=== PATIENT | male | born 1970 | race African-American/Black ===

== ENCOUNTER 2022-02-07 22:04 | Inpatient (IN) | payer MEDICARE, OTHER ==
[2022-02-07 23:13] LABS: Bacteria/HPF 2+ HPF (None Seen); Bilirubin Negative (Negative); Blood, Urine 3+ (Negative); Clarity Turbid (Clear); Glucose, Urine (Dipstick) Normal (Negative); Ketone, Urine Negative (Negative); Leukocyte 500 Leu/uL (Negative); Nitrite Negative (Negative); Protein, Urine (Dipstick) 30 mg/dL (Neg-Trace); RBC/HPF 21-50 HPF (0-3); Specific Gravity, Urine 1.007 (1.002-1.036); Squamous Epithelial 0-3 HPF (0-3); Urobilinogen Normal mg/dL (Less than 2); WBC/HPF Greater than 50 HPF (0-3)
[2022-02-07] MEDS ORDERED: Fentanyl 100 MCG/2 ML VIAL ONE (23:30)
[2022-02-07] MEDS ORDERED: Cefepime 2 GM VIAL ONE (23:30)
[2022-02-07 23:51] LABS: #Eosinphils 0.2 thou/uL (0.0-0.7); #Lymphocytes 1.3 thou/uL (1.20-3.40); #Neutrophils 6.2 thou/uL (1.40-6.50); %Basophils 0.5 % (0.0-1.0); %Eosinophils 2.6 % (0.0-10.0); %Lymphocytes 14.7 % (21.0-51.0); %Monocytes 11.8 % (0.0-10.0); %Neutrophils 70.4 % (42.0-75.0); Hemoglobin 9.4 g/dL (14.0-18.0); Mean Corpuscular HGB CONC 32.1 g/dL (32.0-36.0); Mean Corpuscular Hemoglobin 30.2 pg (27.0-31.0); Mean Platelet Volume 7.4 fL (7.4-10.4); Platelet Count 288 thou/uL (130-400); RBC Distribution Width 15.8 % (11.5-14.5); Red Blood Cell (RBC) Count 3.11 mill/uL (4.70-6.10); White Blood Cell (WBC) Count 8.7 thou/uL (4.8-10.8)
[2022-02-08 00:08] LABS: ALT (SGPT) 39 U/L (8-55); AST (SGOT) 48 U/L (5-34); Albumin 3.1 g/dL (3.5-5.0); Alkaline Phosphatase 110 U/L (40-110); Anion Gap 14 mmol/L (10-20); BUN (Urea Nitrogen) 20 mg/dL (8.4-25.7); Bilirubin, Total 1.2 mg/dL (0.2-1.2); Calc. Creatinine Clearance 0 mL/min (70-130); Calcium 9.3 mg/dL (7.8-10.44); Carbon Dioxide 32 mmol/L (22-29); Chloride 95 mmol/L (98-107); Estimated GFR 29; Globulin 5.1 g/dL (2.4-3.5); Glucose 103 mg/dL (70-105); Potassium 3.8 mmol/L (3.5-5.1); Protein, Total 8.2 g/dL (6.0-8.3); Sodium 137 mmol/L (136-145)
[2022-02-08 01:06] LABS: SARS-CoV-2 NAA Rapid Test Not Detected (NotDetected)
[2022-02-08] MEDS ORDERED: VANCOMYCIN 2 GRAM/500 ML BAG 2 GM in Premix Bag 1 BAG IVPB SCH (01:45)
[2022-02-08] MEDS ORDERED: Fentanyl 100 MCG/2 ML VIAL SLOW IVP PRN (04:17)
[2022-02-08 04:50] VITALS: BMI 41.2
[2022-02-08] MEDS: Acetaminophen 500 MG TAB PO SCH ×3 (05:28→21:53)
[2022-02-08] MEDS ORDERED: Cefepime 1 GM in Sodium Chloride 0.9% 100 ML IVPB SCH (12:00)
[2022-02-08] MEDS ORDERED: Meropenem 1 GM in Sodium Chloride 0.9% 100 ML IVPB SCH ×2 (14:00→22:00)
[2022-02-08] MEDS ORDERED: fentaNYL 50 mcg/hour Patch TD SCH (16:00)
[2022-02-08] MEDS ORDERED: Polyethylene Glycol 3350 17 GM Packet PO SCH (21:00)
[2022-02-08 21:06] VITALS: BP 189/95; TEMP 98.1
[2022-02-09] MEDS ORDERED: Vancomycin 1.5 GRAM/300 ML BAG 1.5 GM in Premix Bag 1 BAG IVPB SCH (02:00)
== END 2022-02-08 23:02 | disposition short-term general hospital (02) | DRG 699 ==
LOC: ERS 22:04 → T4-B 02-08 03:40
PROVIDERS: ADMIT Family Medicine; ATTEND Family Medicine
DX: N99.522 Malfunction of incontinent external stoma of urinary tract (principal); C18.9 Malignant neoplasm of colon, unspecified; C78.7 Secondary malignant neoplasm of liver and intrahepatic bile duct; N13.6 Pyonephrosis; C79.02 Secondary malignant neoplasm of left kidney and renal pelvis; C79.01 Secondary malignant neoplasm of right kidney and renal pelvis; Z20.822 Contact with and (suspected) exposure to COVID-19; Y83.8 Other surgical procedures as the cause of abnormal reaction of the patient, or of later complication, without mention of misadventure at the time of the procedure; B96.5 Pseudomonas (aeruginosa) (mallei) (pseudomallei) as the cause of diseases classified elsewhere; B96.20 Unspecified Escherichia coli [E. coli] as the cause of diseases classified elsewhere; F17.210 Nicotine dependence, cigarettes, uncomplicated; Z90.49 Acquired absence of other specified parts of digestive tract; Z88.5 Allergy status to narcotic agent; Z79.899 Other long term (current) drug therapy
CPT/HCPCS: 36415; 74176; 80053; 81003; 81015; 85025; 87040; 87077; 87086; 87186; 93005; 96374; 96375; J0692; J1642; J2185; J3010; J3370; J3490; U0002

== ENCOUNTER 2022-11-22 11:18 | Day surgery (SDC) | payer OTHER ==
[2022-11-22] MEDS ORDERED: diphenhydrAMINE 25 MG CAP PO SCH (11:45)
[2022-11-22] MEDS ORDERED: Acetaminophen 500 MG TAB PO SCH (11:45)
[2022-11-22] MEDS ORDERED: Acetaminophen 500 MG TAB ONE (11:47)
[2022-11-22] MEDS ORDERED: diphenhydrAMINE 25 MG CAP ONE (11:47)
[2022-11-22 17:06] VITALS: BP 135/81; TEMP 98.4
== END 2022-11-22 17:06 | disposition home or self-care (01) ==
LOC: ONC/OP 11:18
PROVIDERS: ATTEND Internal Medicine Hematology & Oncology
DX: D64.9 Anemia, unspecified (principal); D69.59 Other secondary thrombocytopenia
CPT/HCPCS: 36430; 86850; 86900; 86901; 86920; P9016; J1642

== ENCOUNTER 2023-02-03 12:07 | Day surgery (SDC) | payer OTHER ==
[2023-02-03] MEDS ORDERED: diphenhydrAMINE 25 MG CAP PO SCH (12:45)
[2023-02-03] MEDS ORDERED: Acetaminophen 500 MG TAB PO SCH (12:45)
[2023-02-03] MEDS ORDERED: Furosemide 20 MG/2 ML VIAL SLOW IVP SCH (12:45)
[2023-02-03] MEDS ORDERED: FLU VACC QS2023-24(6MOS UP)/PF 60 MCG/0.5 ML SYRINGE IM ONE (13:15)
[2023-02-03] MEDS ORDERED: Acetaminophen 500 MG TAB ONE (13:25)
[2023-02-03] MEDS ORDERED: diphenhydrAMINE 25 MG CAP ONE (13:25)
[2023-02-03 17:16] VITALS: TEMP 98.3
[2023-02-03 17:40] VITALS: BP 119/63
== END 2023-02-03 17:36 | disposition home or self-care (01) ==
LOC: ONC/OP 12:07
PROVIDERS: ATTEND Internal Medicine Hematology & Oncology
DX: D64.9 Anemia, unspecified (principal); D69.59 Other secondary thrombocytopenia
CPT/HCPCS: 36430; 86850; 86900; 86901; 86920; P9016

== ENCOUNTER 2023-06-08 00:24 | Inpatient (IN) | payer OTHER ==
[2023-06-08] MEDS ORDERED: Potassium Chloride 20 MEQ TAB ONE ×3 (01:06→15:42)
[2023-06-08] MEDS ORDERED: Potassium Chloride 20 MEQ (100 mL) BAG ONE ×2 (01:06→06:31)
[2023-06-08] MEDS ORDERED: Magnesium 2 GM/50 ML BAG (IN WATER) ONE ×2 (01:06→09:46)
[2023-06-08 01:07] LABS: #Eosinphils 0.1 thou/uL (0.0-0.7); #Monocytes 0.7 thou/uL (0.11-0.59); #Neutrophils 8.3 thou/uL (1.40-6.50); %Basophils 0.4 % (0.0-1.0); %Eosinophils 0.7 % (0.0-10.0); %Lymphocytes 9.5 % (21.0-51.0); %Monocytes 6.7 % (0.0-10.0); %Neutrophils 82.3 % (42.0-75.0); Hematocrit 23.7 % (42.0-52.0); Hemoglobin 8.1 g/dL (14.0-18.0); Mean Corpuscular HGB CONC 34.2 g/dL (32.0-36.0); Mean Corpuscular Hemoglobin 30.2 pg (27.0-31.0); Mean Corpuscular Volume 88.4 fl (78.0-98.0); Mean Platelet Volume 10.5 fL (7.4-10.4); Platelet Count 265 10x3/uL (130-400); RBC Distribution Width 18.6 % (11.5-14.5); Red Blood Cell (RBC) Count 2.68 mill/uL (4.70-6.10)
[2023-06-08 01:38] LABS: Troponin I 0.011 ng/mL (< 0.028)
[2023-06-08 01:40] LABS: ALT (SGPT) 18 U/L (8-55); AST (SGOT) 15 U/L (5-34); Albumin 3.5 g/dL (3.5-5.0); Alkaline Phosphatase 133 U/L (40-110); Anion Gap 12 mmol/L (10-20); BUN (Urea Nitrogen) 33 mg/dL (8.4-25.7); Bilirubin, Total 0.3 mg/dL (0.2-1.2); Calc. Creatinine Clearance 0 mL/min (70-130); Carbon Dioxide 15 mmol/L (22-29); Chloride 111 mmol/L (98-107); Estimated GFR 15; Glucose 112 mg/dL (70-105); Protein, Total 7.5 g/dL (6.0-8.3); Sodium 136 mmol/L (136-145)
[2023-06-08 01:42] LABS: Critical Call Chemistry NUR.JRH@0142; Potassium 2.2 mmol/L (3.5-5.1)
[2023-06-08] MEDS ORDERED: Acetaminophen 325 MG TAB PO PRN (03:30)
[2023-06-08] MEDS ORDERED: Ondansetron ODT 4 MG TAB PO PRN (03:30)
[2023-06-08 04:33] LABS: Magnesium 1.6 mg/dL (1.6-2.6)
[2023-06-08] MEDS: Lactated Ringer's 1,000 ML IV SCH (04:43)
[2023-06-08 05:27] LABS: Anion Gap 12 mmol/L (10-20); BUN (Urea Nitrogen) 32 mg/dL (8.4-25.7); Calc. Creatinine Clearance 23 mL/min (70-130); Calcium 10.1 mg/dL (7.8-10.44); Carbon Dioxide 13 mmol/L (22-29); Chloride 113 mmol/L (98-107); Estimated GFR 14; Glucose 95 mg/dL (70-105); Sodium 135 mmol/L (136-145)
[2023-06-08 05:30] LABS: Critical Call Chemistry NUR.JLS2@0530; Potassium 2.6 mmol/L (3.5-5.1)
[2023-06-08 05:41] LABS: SARS-CoV-2 NAA Rapid Test DETECTED (NotDetected)
[2023-06-08] MEDS ORDERED: Potassium Chloride 40 MEQ in Premix 1 BAG IVPB SCH (05:45)
[2023-06-08] MEDS ORDERED: Potassium Bicarbonate/Cit Ac 20 MEQ TAB ONE (06:30)
[2023-06-08] MEDS: Potassium Chloride 20 MEQ in Premix 1 BAG IVPB SCH (06:44)
[2023-06-08] MEDS: Potassium Bicarbonate/Cit Ac 20 MEQ TAB PO SCH (06:44)
[2023-06-08] MEDS ORDERED: Heparin 5,000 UNITS/ML VIAL SC SCH (09:00)
[2023-06-08] MEDS ORDERED: Heparin 5,000 UNITS/ML VIAL ONE (09:45)
[2023-06-08] MEDS: Potassium Chloride 20 MEQ TAB PO SCH (10:09)
[2023-06-08] MEDS: Magnesium Sulfate In Water 4 GM in Premix 1 BAG IVPB SCH (10:09)
[2023-06-08] MEDS: Sodium Bicarbonate 150 MEQ in Dextrose 5% in Water 1,000 ML IV SCH (10:09)
[2023-06-08] MEDS: Heparin 5,000 UNITS/ML VIAL SC SCH (10:10)
[2023-06-08] MEDS: EPOETIN ALFA-EPBX (ESRD) 10,000 UNITS/ML VIAL SC SCH (12:29)
[2023-06-08 13:06] LABS: Bacteria/HPF 4+ HPF (None Seen); Bilirubin Negative (Negative); Blood, Urine 3+ (Negative); CAUTI Indications for Culture Alt mental st,lethar; Clarity Turbid (Clear); Glucose, Urine (Dipstick) Normal (Negative); Ketone, Urine Negative (Negative); Leukocyte 500 Leu/uL (Negative); Nitrite Negative (Negative); Protein, Urine (Dipstick) 70 mg/dL (Neg-Trace); RBC/HPF Greater than 50 HPF (0-3); Specific Gravity, Urine 1.008 (1.002-1.036); Squamous Epithelial None Seen HPF (0-3); Urobilinogen Normal mg/dL (Less than 2); WBC/HPF Greater than 50 HPF (0-3)
[2023-06-08 13:07] LABS: Urine Culture Reflex Yes Yes
[2023-06-08 13:18] LABS: Creatinine, Urine 81.55 mg/dL (63-166)
[2023-06-08] MEDS: Ferrous Sulfate 325 MG TAB PO SCH (16:56)
[2023-06-08 17:19] LABS: Albumin 3.7 g/dL (3.5-5.0); Anion Gap 14 mmol/L (10-20); BUN (Urea Nitrogen) 30 mg/dL (8.4-25.7); BUN/Creatinine Ratio 6.83; Calc. Creatinine Clearance 24 mL/min (70-130); Calcium 10.4 mg/dL (7.8-10.44); Carbon Dioxide 15 mmol/L (22-29); Chloride 112 mmol/L (98-107); Estimated GFR 15; Glucose 102 mg/dL (70-105); Potassium 2.7 mmol/L (3.5-5.1); Sodium 138 mmol/L (136-145)
[2023-06-08 17:49] VITALS: BMI 25.9
[2023-06-09 06:01] LABS: #Eosinphils 0.1 thou/uL (0.0-0.7); #Neutrophils 8.3 thou/uL (1.40-6.50); %Basophils 0.3 % (0.0-1.0); %Eosinophils 1.1 % (0.0-10.0); %Lymphocytes 7.5 % (21.0-51.0); %Monocytes 9.7 % (0.0-10.0); Hematocrit 26.4 % (42.0-52.0); Hemoglobin 8.9 g/dL (14.0-18.0); Mean Corpuscular HGB CONC 33.7 g/dL (32.0-36.0); Mean Corpuscular Hemoglobin 29.5 pg (27.0-31.0); Mean Corpuscular Volume 87.4 fl (78.0-98.0); Mean Platelet Volume 10.4 fL (7.4-10.4); Platelet Count 243 10x3/uL (130-400); RBC Distribution Width 18.6 % (11.5-14.5); Red Blood Cell (RBC) Count 3.02 mill/uL (4.70-6.10); White Blood Cell (WBC) Count 10.3 10x3/uL (4.8-10.8)
[2023-06-09 06:27] LABS: Anion Gap 12 mmol/L (10-20); BUN (Urea Nitrogen) 29 mg/dL (8.4-25.7); Calc. Creatinine Clearance 24 mL/min (70-130); Calcium 10.2 mg/dL (7.8-10.44); Carbon Dioxide 20 mmol/L (22-29); Chloride 108 mmol/L (98-107); Estimated GFR 16; Glucose 109 mg/dL (70-105); Magnesium 2.8 mg/dL (1.6-2.6); Potassium 3.4 mmol/L (3.5-5.1); Sodium 137 mmol/L (136-145)
[2023-06-09] MEDS: Potassium Chloride 20 MEQ TAB PO SCH ×3 (08:04→16:23)
[2023-06-09] MEDS: cefTRIAXone\\ROCEPHIN 1 GM in Sodium Chloride 0.9% 100 ML IVPB SCH (11:16)
[2023-06-09 13:32] LABS: Anion Gap 13 mmol/L (10-20); BUN (Urea Nitrogen) 29 mg/dL (8.4-25.7); Calc. Creatinine Clearance 27 mL/min (70-130); Carbon Dioxide 21 mmol/L (22-29); Chloride 105 mmol/L (98-107); Estimated GFR 17; Glucose 106 mg/dL (70-105); Potassium 2.9 mmol/L (3.5-5.1); Sodium 136 mmol/L (136-145)
[2023-06-09] MEDS ORDERED: Ipratropium/Albuterol 3 ML NEB NEB PRN (16:01)
[2023-06-09] MEDS: oxyCODONE ER 20 MG TAB PO SCH (22:00)
[2023-06-10] MEDS: HYDROmorphone 2 MG TAB PO PRN (04:33)
[2023-06-10] MEDS: 1/2 NS w/Potassium 20 mEq 1,000 ML IV SCH (12:12)
[2023-06-10] MEDS: Albuterol 200 PUFF (6.7GM INHALER) INH PRN (14:13)
[2023-06-10 18:49] LABS: #Eosinphils 0.1 thou/uL (0.0-0.7); #Monocytes 0.9 thou/uL (0.11-0.59); #Neutrophils 5.6 thou/uL (1.40-6.50); %Basophils 0.4 % (0.0-1.0); %Eosinophils 1.3 % (0.0-10.0); %Lymphocytes 10.6 % (21.0-51.0); %Monocytes 12.4 % (0.0-10.0); %Neutrophils 74.8 % (42.0-75.0); Hematocrit 22.2 % (42.0-52.0); Hemoglobin 7.3 g/dL (14.0-18.0); Mean Corpuscular HGB CONC 32.9 g/dL (32.0-36.0); Mean Corpuscular Hemoglobin 29.2 pg (27.0-31.0); Mean Corpuscular Volume 88.8 fl (78.0-98.0); Mean Platelet Volume 10.7 fL (7.4-10.4); Platelet Count 175 10x3/uL (130-400); RBC Distribution Width 18.9 % (11.5-14.5); White Blood Cell (WBC) Count 7.4 10x3/uL (4.8-10.8)
[2023-06-10 19:24] LABS: Anion Gap 12 mmol/L (10-20); BUN (Urea Nitrogen) 25 mg/dL (8.4-25.7); Calc. Creatinine Clearance 32 mL/min (70-130); Calcium 9.4 mg/dL (7.8-10.44); Carbon Dioxide 26 mmol/L (22-29); Chloride 104 mmol/L (98-107); Estimated GFR 20; Glucose 99 mg/dL (70-105); Magnesium 2.1 mg/dL (1.6-2.6); Potassium 4.7 mmol/L (3.5-5.1); Sodium 137 mmol/L (136-145)
[2023-06-10] MEDS: Ondansetron PF 4 MG/2 ML Vial IVP PRN (22:10)
[2023-06-11] MEDS: hydrOXYzine Pamoate 25 mg Capsule PO SCH (05:22)
[2023-06-11 07:44] LABS: #Eosinphils 0.1 thou/uL (0.0-0.7); #Monocytes 0.8 thou/uL (0.11-0.59); #Neutrophils 6.3 thou/uL (1.40-6.50); %Basophils 0.4 % (0.0-1.0); %Eosinophils 1.1 % (0.0-10.0); %Lymphocytes 9.2 % (21.0-51.0); %Monocytes 10.4 % (0.0-10.0); %Neutrophils 78.4 % (42.0-75.0); Hematocrit 23.2 % (42.0-52.0); Hemoglobin 7.5 g/dL (14.0-18.0); Mean Corpuscular HGB CONC 32.3 g/dL (32.0-36.0); Mean Corpuscular Hemoglobin 29.6 pg (27.0-31.0); Mean Platelet Volume 10.3 fL (7.4-10.4); Platelet Count 193 10x3/uL (130-400); Red Blood Cell (RBC) Count 2.53 mill/uL (4.70-6.10); White Blood Cell (WBC) Count 8.1 10x3/uL (4.8-10.8)
[2023-06-11 07:46] LABS: Anion Gap 11 mmol/L (10-20); BUN (Urea Nitrogen) 26 mg/dL (8.4-25.7); Calc. Creatinine Clearance 31 mL/min (70-130); Calcium 9.7 mg/dL (7.8-10.44); Carbon Dioxide 26 mmol/L (22-29); Chloride 104 mmol/L (98-107); Estimated GFR 19; Glucose 94 mg/dL (70-105); Potassium 4.4 mmol/L (3.5-5.1); Sodium 137 mmol/L (136-145)
[2023-06-11 08:40] LABS: Mean Corpuscular Volume 91.7 fl (78.0-98.0)
[2023-06-11] MEDS: Amlodipine 5 MG TAB PO SCH (09:05)
[2023-06-11] MEDS: Tamsulosin HCl 0.4 MG CAP PO SCH (09:05)
[2023-06-11] MEDS: Sodium Chloride 0.9% 1,000 ML IV SCH (09:57)
[2023-06-11] MEDS: Citalopram 20 MG TAB PO SCH (12:34)
[2023-06-11 13:40] LABS: Bilirubin Negative (Negative); Blood, Urine 2+ (Negative); CAUTI Indications for Culture Alt mental st,lethar; Glucose, Urine (Dipstick) Normal (Negative); Ketone, Urine Negative (Negative); Leukocyte 500 Leu/uL (Negative); Nitrite Negative (Negative); Protein, Urine (Dipstick) 50 mg/dL (Neg-Trace); Specific Gravity, Urine 1.006 (1.002-1.036); Urobilinogen Normal mg/dL (Less than 2); WBC/HPF Greater than 50 HPF (0-3)
[2023-06-11 13:41] LABS: Bacteria/HPF 1+ HPF (None Seen); Clarity Cloudy (Clear)
[2023-06-11 13:49] LABS: Squamous Epithelial 0-3 HPF (0-3)
[2023-06-11 13:50] LABS: Yeast-Budding Rare HPF (None Seen); Yeast-Hyphae Rare HPF (None Seen)
[2023-06-11 13:51] LABS: Urine Culture Reflex Yes Yes
[2023-06-11] MEDS: Cyclobenzaprine 10 MG TAB PO PRN (21:57)
[2023-06-11] MEDS: Ascorbic Acid 500 mg Chewable Tablet PO SCH (21:57)
[2023-06-12 05:47] LABS: #Eosinphils 0.2 thou/uL (0.0-0.7); #Monocytes 0.7 thou/uL (0.11-0.59); #Neutrophils 5.2 thou/uL (1.40-6.50); %Basophils 0.3 % (0.0-1.0); %Eosinophils 2.2 % (0.0-10.0); %Lymphocytes 10.8 % (21.0-51.0); %Monocytes 10.2 % (0.0-10.0); %Neutrophils 75.9 % (42.0-75.0); Hematocrit 23.2 % (42.0-52.0); Hemoglobin 7.3 g/dL (14.0-18.0); Mean Corpuscular HGB CONC 31.5 g/dL (32.0-36.0); Mean Corpuscular Hemoglobin 29.2 pg (27.0-31.0); Mean Corpuscular Volume 92.8 fl (78.0-98.0); Mean Platelet Volume 10.7 fL (7.4-10.4); Platelet Count 184 10x3/uL (130-400); White Blood Cell (WBC) Count 6.9 10x3/uL (4.8-10.8)
[2023-06-12 06:12] LABS: Anion Gap 10 mmol/L (10-20); BUN (Urea Nitrogen) 23 mg/dL (8.4-25.7); Calc. Creatinine Clearance 32 mL/min (70-130); Calcium 9.3 mg/dL (7.8-10.44); Carbon Dioxide 24 mmol/L (22-29); Chloride 106 mmol/L (98-107); Estimated GFR 19; Glucose 81 mg/dL (70-105); Potassium 4.2 mmol/L (3.5-5.1); Sodium 136 mmol/L (136-145)
[2023-06-12] MEDS: Citalopram 20 MG TAB PO SCH (09:09)
[2023-06-12] MEDS: Megestrol Acetate 800 MG/20 ML UDCUP PO SCH (09:10)
[2023-06-13 05:26] LABS: #Eosinphils 0.1 thou/uL (0.0-0.7); #Monocytes 0.6 thou/uL (0.11-0.59); #Neutrophils 6.1 thou/uL (1.40-6.50); %Basophils 0.4 % (0.0-1.0); %Eosinophils 1.2 % (0.0-10.0); %Lymphocytes 11.6 % (21.0-51.0); %Monocytes 8.1 % (0.0-10.0); %Neutrophils 78.2 % (42.0-75.0); Hemoglobin 8.3 g/dL (14.0-18.0); Mean Corpuscular HGB CONC 31.9 g/dL (32.0-36.0); Mean Corpuscular Hemoglobin 29.6 pg (27.0-31.0); Mean Corpuscular Volume 92.9 fl (78.0-98.0); Mean Platelet Volume 10.3 fL (7.4-10.4); Platelet Count 195 10x3/uL (130-400); RBC Distribution Width 18.7 % (11.5-14.5); White Blood Cell (WBC) Count 7.8 10x3/uL (4.8-10.8)
[2023-06-13 05:50] LABS: Anion Gap 13 mmol/L (10-20); BUN (Urea Nitrogen) 24 mg/dL (8.4-25.7); Calc. Creatinine Clearance 31 mL/min (70-130); Calcium 10.1 mg/dL (7.8-10.44); Carbon Dioxide 24 mmol/L (22-29); Chloride 105 mmol/L (98-107); Estimated GFR 18; Glucose 92 mg/dL (70-105); Sodium 138 mmol/L (136-145)
[2023-06-14 06:44] LABS: #Eosinphils 0.1 thou/uL (0.0-0.7); #Monocytes 0.6 thou/uL (0.11-0.59); #Neutrophils 6.2 thou/uL (1.40-6.50); %Basophils 0.4 % (0.0-1.0); %Eosinophils 1.8 % (0.0-10.0); %Lymphocytes 10.9 % (21.0-51.0); %Monocytes 7.6 % (0.0-10.0); Hematocrit 25.6 % (42.0-52.0); Hemoglobin 8.2 g/dL (14.0-18.0); Mean Corpuscular Hemoglobin 29.8 pg (27.0-31.0); Mean Corpuscular Volume 93.1 fl (78.0-98.0); Mean Platelet Volume 9.7 fL (7.4-10.4); Platelet Count 197 10x3/uL (130-400); RBC Distribution Width 18.6 % (11.5-14.5); Red Blood Cell (RBC) Count 2.75 mill/uL (4.70-6.10); White Blood Cell (WBC) Count 7.8 10x3/uL (4.8-10.8)
[2023-06-14 06:58] LABS: INR-International Normal Ratio 1.2
[2023-06-14 07:00] LABS: Anion Gap 11 mmol/L (10-20); BUN (Urea Nitrogen) 22 mg/dL (8.4-25.7); Calc. Creatinine Clearance 33 mL/min (70-130); Calcium 9.8 mg/dL (7.8-10.44); Carbon Dioxide 21 mmol/L (22-29); Chloride 108 mmol/L (98-107); Estimated GFR 19; Glucose 104 mg/dL (70-105); Potassium 3.6 mmol/L (3.5-5.1); Sodium 136 mmol/L (136-145)
[2023-06-14] MEDS ORDERED: fentaNYL 50 mcg/mL 1 mL Vial ONE (11:11)
[2023-06-14] MEDS ORDERED: Lidocaine 1% PF 5 ML VIAL ONE (11:11)
[2023-06-14] MEDS ORDERED: Sodium Bicarbonate 2.5 MEQ/5 ML SDV ONE ×2 (11:11→13:08)
[2023-06-14] MEDS ORDERED: Iopamidol 100 ML FS ONE (13:08)
[2023-06-14] MEDS ORDERED: Sodium Chloride 0.9% 500 ML ONE (13:08)
[2023-06-14] MEDS ORDERED: Ondansetron PF 4 MG/2 ML Vial ONE (14:04)
[2023-06-14 16:34] VITALS: TEMP 98.4
[2023-06-14 16:36] VITALS: BP 121/75
[2023-06-14] MEDS ORDERED: Sodium Bicarbonate Tab 325 MG TAB PO SCH (21:00)
== END 2023-06-14 19:08 | disposition home or self-care (01) | DRG 682 ==
LOC: ERS 00:24 → ERHOLD 03:02 → 2SW 17:38
PROVIDERS: ADMIT Internal Medicine; ATTEND Family Medicine
PROC: 30233N1 Transfusion of Nonautologous Red Blood Cells into Peripheral Vein, Percutaneous Approach (ICD-10-PCS; 2023-06-12)
PROC: 0T25X0Z Change Drainage Device in Kidney, External Approach (ICD-10-PCS; principal; 2023-06-14)
DX: N17.9 Acute kidney failure, unspecified (principal); U07.1 COVID-19; C18.9 Malignant neoplasm of colon, unspecified; C77.2 Secondary and unspecified malignant neoplasm of intra-abdominal lymph nodes; C78.7 Secondary malignant neoplasm of liver and intrahepatic bile duct; E87.21 Acute metabolic acidosis; E87.6 Hypokalemia; N18.4 Chronic kidney disease, stage 4 (severe); F17.210 Nicotine dependence, cigarettes, uncomplicated; I45.81 Long QT syndrome; N13.6 Pyonephrosis; I12.9 Hypertensive chronic kidney disease with stage 1 through stage 4 chronic kidney disease, or unspecified chronic kidney disease; D63.1 Anemia in chronic kidney disease; E83.42 Hypomagnesemia; E86.0 Dehydration; Z93.6 Other artificial openings of urinary tract status; Z90.49 Acquired absence of other specified parts of digestive tract; Z98.890 Other specified postprocedural states; Z79.899 Other long term (current) drug therapy; Z88.5 Allergy status to narcotic agent; Z88.6 Allergy status to analgesic agent
CPT/HCPCS: 36415; 36430; 50431; 50435; 71045; 80048; 80053; 81001; 82040; 82570; 83735; 83880; 84145; 84300; 84484; 85025; 85610; 86850; 86870; 86900; 86901; 86922; 87077; 87086; 87186; 93005; 93306; 96365; 96366; 96368; J0696; J1642; J1644; J2405; J3010; J3475; J3480; J3490; J7030; J7050; J7070; J7120; P9016; Q0177; Q5105; Q9967